=== PATIENT | female | born 1955 | race African-American/Black ===

== ENCOUNTER 2016-09-26 08:14 | Emergency (ER) | payer MEDICAID ==
[~2016-09-26] VITALS: Ht 157.5 cm; Wt 69.9 kg
[~2016-09-26 08:14] MED LIST: AMLODIPINE BESYL5 MG ORAL; ASPIR 8181 MG ORAL; HYDROCHLOROTHIA25 MG ORAL; PANTOPRAZOLE SO40 MG ORAL; QUINAPRIL HCL40 MG PO
--- NOTE | 2016-09-26 08:42 | Emergency Room Report ---
History of Present Illness General Chief Complaint: Chest Pain Source: Patient Present Illness HPI Patient presents with complaints of chest pain midsternal Started last night she reports when she tries to sit up she feels pain in the midsternal area She also reports that she has not felt right ever since starting her new blood pressure medications last month She reports that the dental office was found to be hypotensive and started on medications Denies any vomiting or diarrhea denies any pain when not moving Denies any pleurisy denies any fall or trauma Allergies: Coded Allergies: No Known Allergies (Unverified , 02/14/16) Patient History Past Medical History: see triage record Pertinent Family History: none Reviewed Nursing Documentation: PMH: Agreed, PSxH: Agreed Nursing Documentation-PMH Hx Hypertension: Yes Review of Systems All Other Systems: negative except mentioned in HPI Physical Exam Vital Signs Date Time Temp Pulse Resp B/P Pulse Ox O2 Delivery O2 Flow Rate FiO2 09/26/16 08:19 98.4 84 18 126/78 92 Room Air Sp02 EP Interpretation: reviewed, normal General Appearance: well appearing, no apparent distress Head: normocephalic, atraumatic Eyes: bilateral eye EOMI, bilateral eye PERRL ENT: hearing grossly normal, normal pharynx, TMs + canals normal, uvula midline Neck: full range of motion, supple, no meningismus, no bony tend Respiratory: lungs clear, normal breath sounds, no rhonchi, no respiratory distress, no retraction, no accessory muscle use Cardiovascular #1: normal peripheral pulses, regular rate, rhythm, no edema, no gallop, no JVD, no murmur Gastrointestinal: normal bowel sounds, non tender, soft, no mass, no organomegaly, non-distended, no guarding, no hernia, no pulsatile mass, no rebound Genitourinary: no CVA tenderness Musculoskeletal: normal inspection Neurologic: oriented x3, responsive, artist scientific III-XII nml as tested, motor strength/ tone normal, sensory intact Psychiatric: mood/affect normal Skin: normal color, no rash, warm/dry, palpation normal Lymphatic: normal inspection, no adenopathy Medical Decision Making Diagnostic Impression: Primary Impression: Chest pain ER Course Patient is a fairly complex patient with multiple differential to consideration including but not limited to cardiac cardiopulmonary and vascular emergencies Patient's description of the pain does not sound necessarily cardiac in nature however given some any risk factors initial workup was initiated X-ray and blood work are appropriate patient resting comfortably Is pain-free at this time and is stable for initial conservative outpatient trial Labs Test 09/26/16 08:30 White Blood Count 10.4 K/UL (4.8-10.8) Red Blood Count 4.96 M/UL (4.20-5.40) Hemoglobin 14.5 G/DL (12.0-16.0) Hematocrit 45.5 % (37.0-47.0) Mean Corpuscular Volume 92 FL (80-99) Mean Corpuscular Hemoglobin 29.2 PG (27.0-31.0) Mean Corpuscular Hemoglobin Concent 31.9 G/DL (32.0-36.0) Red Cell Distribution Width 12.4 % (11.6-14.8) Platelet Count 182 K/UL (150-450) Mean Platelet Volume 11.5 FL (6.5-10.1) Neutrophils (%) (Auto) 59.9 % (45.0-75.0) Lymphocytes (%) (Auto) 26.3 % (20.0-45.0) Monocytes (%) (Auto) 12.7 % (1.0-10.0) Eosinophils (%) (Auto) 0.1 % (0.0-3.0) Basophils (%) (Auto) 1.0 % (0.0-2.0) Sodium Level 132 mEQ/L (135-145) Potassium Level 4.3 mEQ/L (3.4-4.9) Chloride Level 93 mEQ/L (98-107) Carbon Dioxide Level 22 mEQ/L (20-30) Anion Gap 17 (5-15) Blood Urea Nitrogen 11 mg/dL (7-23) Creatinine 1.1 mg/dL (0.5-0.9) Estimat Glomerular Filtration Rate > 60 mL/min (>60) Glucose Level 150 mg/dL (74-106) Calcium Level 9.5 mg/dL (8.6-10.2) Total Bilirubin 0.6 mg/dL (0.0-1.2) Aspartate Amino Transf (AST/SGOT) 48 U/L (5-40) Alanine Aminotransferase (ALT/SGPT) 42 U/L (3-33) Alkaline Phosphatase 127 U/L (35-104) Total Creatine Kinase 75 U/L (26-140) Creatine Kinase MB < 1.5 ng/mL (< 3.8) Creatine Kinase MB Relative Index Troponin I < 0.30 ng/mL (<=0.30) Pro-B-Type Natriuretic Peptide 70 pg/mL (0-125) Total Protein 8.5 g/dL (6.6-8.7) Albumin 4.1 g/dL (3.5-5.2) Globulin 4.4 g/dL Albumin/Globulin Ratio 0.9 (1.0-2.7) EKG Diagnostic Results Rate: normal Rhythm: NSR ST Segments: no acute changes Rhythm Strip Diag. Results EP Interpretation: yes Rate: 67 Rhythm: NSR, no PVC's, no ectopy Chest X-Ray Diagnostic Results EP Interpretation: Yes Findings: no consolidation, no effusion, no pneumothorax, no acute cardiopulmonary disease Number of Views: 1 Last Vital Signs Date Time Temp Pulse Resp B/P Pulse Ox O2 Delivery O2 Flow Rate FiO2 09/26/16 08:35 84 18 Room Air 09/26/16 08:19 98.4 126/78 92 Status: improved Disposition: HOME, SELF-CARE Condition: Improved Scripts Famotidine (PEPCID) 40 Mg Tablet 40 MG PO DAILY, #7 TAB 0 Refills Prov: SHAW CASTANON D.O. 09/26/16 Additional Instructions: Patient is provided with the discharge instructions notified to follow up with primary doctor in the next 2-3 days otherwise return to the er with any worsening symptoms. Please note that this report is being documented using [employer] technology. This can lead to erroneous entry secondary to incorrect interpretation by the dictating instrument. SHAW CASTANON D.O. Sep 26, 2016 08:42
[2016-09-26 08:43] VITALS: BP 103/59
[2016-09-26 08:53] LABS: EOSINOPHILS % (AUTO) 0.1 % (0.0-3.0); LYMPHOCYTES % (AUTO) 26.3 % (20.0-45.0); MEAN CORPUSCULAR HEMOGLOBIN 29.2 PG (27.0-31.0); MEAN CORPUSCULAR HGB CONC 31.9 G/DL (32.0-36.0); MEAN CORPUSCULAR VOLUME 92 FL (80-99); MEAN PLATELET VOLUME 11.5 FL (6.5-10.1); MONOCYTES % (AUTO) 12.7 % (1.0-10.0); NEUTROPHILS % (AUTO) 59.9 % (45.0-75.0); PLATELET COUNT 182 K/UL (150-450); RED BLOOD COUNT 4.96 M/UL (4.20-5.40); RED CELL DISTRIBUTION WIDTH 12.4 % (11.6-14.8); WHITE BLOOD COUNT 10.4 K/UL (4.8-10.8)
[2016-09-26 09:03] LABS: ALANINE AMINOTRANSFERASE 42 U/L (3-33); ALBUMIN/GLOBULIN RATIO 0.9 (1.0-2.7); ANION GAP 17 (5-15); ASPARTATE AMINO TRANSFERASE 48 U/L (5-40); CALCIUM 9.5 mg/dL (8.6-10.2); CARBON DIOXIDE 22 mEQ/L (20-30); CHLORIDE 93 mEQ/L (98-107); CREATININE 1.1 mg/dL (0.5-0.9); GLOMERULAR FILTRATION RATE > 60 mL/min (>60); HEMOLYSIS 2; POTASSIUM 4.3 mEQ/L (3.4-4.9); SODIUM 132 mEQ/L (135-145); TOTAL PROTEIN 8.5 g/dL (6.6-8.7); TROPONIN I < 0.30 ng/mL (<=0.30)
[2016-09-26 09:25] LABS: CKMB < 1.5 ng/mL (< 3.8)
[2016-09-26] MEDS ORDERED: PEPCID40 MG PO (09:52)
[2016-09-26 10:11] VITALS: BP 105/57
[2016-09-26 10:13] VITALS: BP 105/57
--- NOTE | 2016-09-26 12:03 | Diagnostic Imaging Report ---
Indication: Chest pain Technique: One view of the chest Comparison: none Findings: Lungs and pleural spaces are clear. Heart size is normal. Impression: No acute process
--- NOTE | 2016-09-28 08:33 | Cardiology Report ---
APPROVED REPORT EKG Measurement Heart [id number] Normal sinus rhythm Possible Left atrial enlargement Incomplete right bundle branch block Borderline ECG
== END 2016-09-26 10:15 | disposition home or self-care (01) ==
LOC: EMR 08:48
DX: R07.9 Chest pain, unspecified (principal); I10 Essential (primary) hypertension
CPT/HCPCS: 36415; 71010; 80053; 82550; 82553; 83880; 84484; 85025; 93005; 99283

== ENCOUNTER 2016-11-29 10:11 | Emergency (ER) | payer MEDICAID ==
[~2016-11-29] VITALS: Ht 157.5 cm; Wt 59.0 kg
[~2016-11-29 10:11] MED LIST changes: +PEPCID40 MG PO
[2016-11-29] MEDS ORDERED: ATENOLOL25 MG ORAL (10:28)
[2016-11-29 10:58] LABS: BASOPHILS % (AUTO) 0.8 % (0.0-2.0); EOSINOPHILS % (AUTO) 0.4 % (0.0-3.0); LYMPHOCYTES % (AUTO) 22.9 % (20.0-45.0); MEAN CORPUSCULAR HEMOGLOBIN 28.6 PG (27.0-31.0); MEAN CORPUSCULAR HGB CONC 33.1 G/DL (32.0-36.0); MEAN CORPUSCULAR VOLUME 86 FL (80-99); MEAN PLATELET VOLUME 9.9 FL (6.5-10.1); MONOCYTES % (AUTO) 10.4 % (1.0-10.0); NEUTROPHILS % (AUTO) 65.5 % (45.0-75.0); PLATELET COUNT 235 K/UL (150-450); RED BLOOD COUNT 4.66 M/UL (4.20-5.40); RED CELL DISTRIBUTION WIDTH 12.2 % (11.6-14.8); WHITE BLOOD COUNT 14.8 K/UL (4.8-10.8)
[2016-11-29 10:58] LABS: APPEARANCE,URINE CLEAR; KETONES,URINE NEGATIVE (NEGATIVE); LEUKOCYTE ESTERASE ,URINE 2+ (NEGATIVE); NITRITE,URINE NEGATIVE (NEGATIVE); PH,URINE 5 (4.5-8.0); PROTEIN,URINE 1+ (NEGATIVE); UROBILINOGEN,URINE 4 MG/DL (0.0-1.0)
[2016-11-29 11:00] VITALS: BP 129/69
[2016-11-29 11:15] LABS: ALANINE AMINOTRANSFERASE 45 U/L (3-33); ALBUMIN/GLOBULIN RATIO 0.7 (1.0-2.7); ASPARTATE AMINO TRANSFERASE 50 U/L (5-40); CALCIUM 9.4 mg/dL (8.6-10.2); CARBON DIOXIDE 25 mEQ/L (20-30); CREATININE 1.8 mg/dL (0.5-0.9); GLOMERULAR FILTRATION RATE 34.7 mL/min (>60); HEMOLYSIS 0; TOTAL PROTEIN 8.4 g/dL (6.6-8.7); TROPONIN I < 0.30 ng/mL (<=0.30)
[2016-11-29 11:16] LABS: BACTERIA,URINE FEW /HPF; SQUAMOUS EPITHELIAL CELL,UR FEW /LPF (NONE/OCC)
[2016-11-29 11:19] LABS: ICTOTEST NEGATIVE
[2016-11-29 11:25] LABS: CKMB < 1.5 ng/mL (< 3.8)
[2016-11-29 11:32] LABS: ANION GAP 20 (5-15); CHLORIDE 84 mEQ/L (98-107); POTASSIUM 2.5 mEQ/L (3.4-4.9); SODIUM 129 mEQ/L (135-145)
--- NOTE | 2016-11-29 11:38 | Emergency Room Report ---
History of Present Illness General Chief Complaint: General Complaint Source: Patient, Family Member Present Illness HPI 61 YOF walk-in with 2 weeks of "feeling like I'm walking drunk" and unsteadiness. Denies falling to one side, headache, neck pain/stiffness, fever/ chills. Denies chest pain, SOB, abd pain, dysuria but notes "dark urine." History of HTN. Denies history of CVA. Allergies: Coded Allergies: No Known Allergies (Unverified , 02/14/16) Patient History Past Medical History: HTN Past Surgical History: none Pertinent Family History: none Social History: Denies: alcohol use, drug use, smoking Last Menstrual Period: menopause Now: No : 2 Para: 2 Immunizations: UTD Reviewed Nursing Documentation: PMH: Agreed, PSxH: Agreed Nursing Documentation-PMH Hx Hypertension: Yes Hx Gastrointestinal Problems: Yes - GERD Review of Systems All Other Systems: negative except mentioned in HPI Physical Exam Vital Signs Date Time Temp Pulse Resp B/P Pulse Ox O2 Delivery O2 Flow Rate FiO2 11/29/16 10:21 97.9 64 17 109/68 95 Room Air Sp02 EP Interpretation: reviewed, normal General Appearance: normal inspection, well appearing, no apparent distress, alert, GCS 15, non-toxic Head: normocephalic, atraumatic Eyes: bilateral eye EOMI, bilateral eye PERRL ENT: normal ENT inspection, hearing grossly normal, normal voice Neck: normal inspection, full range of motion, supple, no bony tend Respiratory: normal inspection, lungs clear, normal breath sounds, no respiratory distress, no retraction, no wheezing Cardiovascular #1: regular rate, rhythm, no edema Gastrointestinal: normal inspection, normal bowel sounds, non tender, soft, no guarding, no hernia Genitourinary: no CVA tenderness Musculoskeletal: normal inspection, back normal, normal range of motion, Pete' s Sign negative Neurologic: normal inspection, alert, oriented x3, responsive, lap cutter III-XII nml as tested, motor strength/tone normal, cerebellar normal, normal gait, speech normal Psychiatric: normal inspection, judgement/insight normal, mood/affect normal Skin: normal inspection Lymphatic: normal inspection Medical Decision Making Diagnostic Impression: Primary Impression: Weakness Additional Impressions: Hypokalemia SHUBHAM (acute kidney injury) UTI (urinary tract infection) Qualified Codes: N30.00 - Acute cystitis without hematuria Cerebellar hemorrhage, acute ER Course Weakness - Multifactorial - Labs show HypoK, SHUBHAM, and UTI - K repleted, Abx given - CT head shows 8mm mass vs small hemorrhage L superior cerebellum with edema MRI also shows left cerebellar 1cm acute bleed with ?associated smaller area of bleeding. acute ICH vs AVM vs mass Endorsed to Dr Murillo at [facility] for ICU transfer at 232pm EKG Diagnostic Results Rate: normal Rhythm: NSR ST Segments: other - Prolonged QTc Rhythm Strip Diag. Results EP Interpretation: yes Rate: 66 Rhythm: NSR, no PVC's, no ectopy Chest X-Ray Diagnostic Results EP Interpretation: Yes Findings: no consolidation, no effusion, no pneumothorax, no acute cardiopulmonary disease Number of Views: 1 Last Vital Signs Date Time Temp Pulse Resp B/P Pulse Ox O2 Delivery O2 Flow Rate FiO2 11/29/16 11:00 65 16 129/69 100 Room Air 11/29/16 10:21 97.9 Status: improved Disposition: ADMITTED INPATIENT Condition: Critical Referrals: [facility],REFERRING (PCP) GABRIELA OMNCADA M.D. Nov 29, 2016 11:38
[2016-11-29] MEDS ORDERED: cefTRIAXone 1 GM in NS 55 ML IVPB ONE (11:45)
[2016-11-29] MEDS ORDERED: KCl 10% 40mEq/30ml liquid ORAL ONE (11:45)
[2016-11-29 12:00] VITALS: BP 132/65
--- NOTE | 2016-11-29 12:50 | Diagnostic Imaging Report ---
Indication: Headache Technique: Contiguous 5 mm thick transaxial imaging of the head obtained in a Siemens Sensation [address] scanner. Soft tissue and bone windows generated. Total Dose length Product (DLP): [address] Dose Index Volume (CTDIvol): 70.38 mGy Comparison: none Findings: In the superior left cerebellum there is a 7-8 mm hyperdensity with suggestion of surrounding low-density edema. The findings are suspicious for a small mass versus a focus of hemorrhage. Further evaluation with gadolinium-enhanced MR suggested. There is mild generalized atrophy the brain age-appropriate. There is no hydrocephalus. There is no mass effect. No midline shift appreciated. Osseous structures are unremarkable. Paranasal sinuses and mastoids are clear. Impression: 8 mm round focus of acute hemorrhage versus mass in the left superior cerebellum. Small amount of surrounding edema noted. Further evaluation with MRI with gadolinium recommended. The CT scanner at [facility] is accredited by the [employer] and the scans are performed using dose optimization techniques as appropriate to a performed exam including Automatic Exposure control.
--- NOTE | 2016-11-29 12:58 | Diagnostic Imaging Report ---
Indication: Chest Pain Comparison: 09/26/16 A single view chest radiograph was obtained. Findings: Cardiomediastinal appearance is within normal limits for age. Aorta is mildly calcified. Pulmonary vascularity is appropriate. The diaphragmatic contour is smooth and costophrenic angles are sharp. No pleural effusions are identified. The bones are osteopenic. Impression: No acute findings
[2016-11-29 14:04] VITALS: BP 126/57
--- NOTE | 2016-11-29 15:20 | Diagnostic Imaging Report ---
Indication: Acute intercranial bleed Technique: The head was imaged in a 1.5 Georgina magnet. Sequences obtained include sagittal and axial T1 FLAIR, axial T2 fast spin echo with fat saturation, axial T2 FLAIR, diffusion and ADC map. Gadolinium could not be given as the patient has elevated creatinine/diminished GFR. Comparison: CT head without contrast 11:24 Findings: There is proximally 1 cm T1 isointense/T2 hypointense/low T2 *gradient echo (magnetic susceptibility) focus in the left superior cerebellum corresponding to hyperdensity seen on the earlier noncontrast CT. Findings confirm presence of deoxyhemoglobin and acute hemorrhage. Adjacent 7 mm focus of methemoglobin is a subacute blood) noted superomedial to the first lesion. There is surrounding T2 hyperintense edema with very mild mass effect on the fourth ventricle. Unfortunately gadolinium could not be given. Not certain if this is associated with a tumor or vascular malformation. No other evidence of such is identified on this study. There is an additional focus of magnetic susceptibility or low T2 * signal noted in the right parietal lobe (series 9, image 14) next to the interhemispheric fissure. Corresponding sequences show a questionable lesion in this location that is primarily hyperintense on T2-weighted images. Mild atrophy is present. The corpus callosum and sella are unremarkable. The left maxillary sinus is diminished in size. Impression: 1 cm focus of acute intraparenchymal blood in the left superior cerebellum with surrounding edema. Adjacent 7 mm focus of subacute hemorrhage also noted. Uncertain of this is a bland hemorrhage or whether this is associated with tumor or vascular malformation. Gadolinium could not be given. Second focus may be a small acute focus of hemorrhage in the high right parietal lobe. Followup recommended. Mild atrophy of the brain Abnormal left maxillary sinus probably from chronic sinusitis.
[2016-11-29 16:00] VITALS: BP 132/71
[2016-11-29 18:00] VITALS: BP 144/70
[2016-11-29 18:45] VITALS: BP 131/56
== END 2016-11-29 19:15 | disposition short-term general hospital (02) ==
LOC: EMR 10:43 → EDBEDREQSVC 16:21 → EDBEDREQ 16:21 → EDBEDREQTM 16:21 → EMR 19:15
DX: R53.1 Weakness (principal); I10 Essential (primary) hypertension; K21.9 Gastro-esophageal reflux disease without esophagitis; E87.6 Hypokalemia; N17.9 Acute kidney failure, unspecified; N39.0 Urinary tract infection, site not specified; I61.4 Nontraumatic intracerebral hemorrhage in cerebellum; G31.9 Degenerative disease of nervous system, unspecified
CPT/HCPCS: 36415; 70450; 70551; 71010; 80053; 81003; 82550; 82553; 84484; 85025; 93005; 96360; 96361; 99285; J0696